=== PATIENT | male | born 1990 | race Caucasian/White ===

== ENCOUNTER 2016-05-08 04:20 | Emergency (ER) | payer OTHER ==
[~2016-05-08 04:20] MED LIST: ALPRAZOLAM; AMOXICILLIN PO; AMOXICILLIN500 M1 PO; ATARAX PO; BACTRIM DS TABL1 TA1 PO; CATAPRES0.1 MG PO; CLONIDINE PO; DOLOPHINE HCL5 MG; DOXYCYCLINE PO; FLEXERIL PO; FLEXERIL10 MG PO; IBUPROFEN PO; KEFLEX500 M1 PO; KEFLEX500 MG PO; LIDOCAINE HC MM; METHADONE; METHADONE PO; NAPROSYN375 MG PO; NO MEDICATIONS; PERCOCET5/325 PO; PERIDEX480 ML PO; PHENERGAN DM1 ML PO; PHENERGAN12.5 MG/SU; PHENERGAN25 M1; PHENERGAN25 M1 PO; PHENERGAN25 MG PO; SUBOXON; SUBOXONE 12 MG1 EACH; SUBOXONE 8 MG-1 EAC1; SUBOXONE 8 MG-1 EAC1 PO; TETRACYCLINE PO; VIBRAMYCIN100 M1 PO; VICODIN 5/500 T1 TAB PO; VISTARIL PO; VOLTAREN75 MG PO; XANAX0.5 M1 DOB; XANAX1 MG PO; ZOFRAN PO; ZYRTEC PO
[2016-06-10] MEDS ORDERED: NO MEDICATIONS (01:58)
== END 2016-05-08 06:30 | disposition home or self-care (01) ==
LOC: SED 04:20
DX: F11.129 Opioid abuse with intoxication, unspecified (principal); F15.129 Other stimulant abuse with intoxication, unspecified; F41.9 Anxiety disorder, unspecified; F17.210 Nicotine dependence, cigarettes, uncomplicated
CPT/HCPCS: 99282

== ENCOUNTER 2016-05-28 12:18 | Emergency (ER) | payer OTHER ==
[2016-06-10] MEDS ORDERED: NO MEDICATIONS (01:58)
== END 2016-05-28 12:42 | disposition home or self-care (01) ==
LOC: SED 12:18
DX: K02.9 Dental caries, unspecified (principal); K04.01 Reversible pulpitis; F41.9 Anxiety disorder, unspecified; Z98.890 Other specified postprocedural states
CPT/HCPCS: 99282

== ENCOUNTER 2016-06-10 02:31 | Emergency (ER) | payer OTHER ==
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
== END 2016-06-10 05:09 | disposition home or self-care (01) ==
LOC: SED 02:31
DX: S16.1XXA Strain of muscle, fascia and tendon at neck level, initial encounter (principal); S29.012A Strain of muscle and tendon of back wall of thorax, initial encounter; S39.012A Strain of muscle, fascia and tendon of lower back, initial encounter; F41.9 Anxiety disorder, unspecified; F17.200 Nicotine dependence, unspecified, uncomplicated; V49.50XA Passenger injured in collision with unspecified motor vehicles in traffic accident, initial encounter; Y93.89 Activity, other specified; Y92.410 Unspecified street and highway as the place of occurrence of the external cause
CPT/HCPCS: 72040; 72072; 72100; 99284

== ENCOUNTER 2016-10-12 16:31 | Emergency (ER) | payer OTHER ==
[2016-10-12 19:04] LABS: AMPHETAMINE POS (NEG); BARBITURATES NEG (NEG); BENZODIAZEPINES POS (NEG); COCAINE NEG (NEG); MARIJUANA POS (NEG); OPIATES POS (NEG); TRICYCLIC ANTIDEPRESSANTS NEG (NEG); U METHADONE NEG (NEG)
[2016-10-12 21:57] LABS: BASOPHIL# 0.1 X10e3 (0-0.3); EOSINOPHIL# 0.2 X10e3 (0-0.7); EOSINOPHIL% 4.3 % (0.0-7.0); HEMATOCRIT 38.1 % (38.0-50.0); HEMOGLOBIN 12.7 gm/dL (13.0-16.0); LYMPHOCYTE# 1.1 X10e3 (1.0-3.5); LYMPHOCYTE% 18.7 % (17.0-45.0); MEAN CELL VOLUME 89.9 FL (83-96); MEAN CORPUSCULAR HEMOGLOBIN 30.1 PG (28-34); MEAN CORPUSCULAR HGB CONC 33.5 g/dL (30-36); MEAN PLATELET VOLUME 7.6 FL (6.5-11.5); MONOCYTE# 0.8 X10e3 (0-1.0); MONOCYTE% 13.2 % (3.0-12.0); NEUTROPHIL# 3.6 X10e3 (1.5-7.1); NEUTROPHIL% 62.8 % (40-75); PLATELET COUNT 241 X10e3 (140-420); RED BLOOD COUNT 4.23 X10e (3.90-5.60); RED CELL DISTRIBUTION WIDTH 13.4 % (11.0-15.5); WHITE BLOOD COUNT 5.7 X10e3 (4.0-10.5)
[2016-10-12 21:58] LABS: DIFF IND NO
[2016-10-12 22:18] LABS: ALBUMIN SERUM 3.8 g/dL (3.5-5.0); ALKALINE PHOSPHATASE 160 U/L (32-92); ALT (SGPT) 646 U/L (10-40); AST (SGOT) 493 U/L (10-42); BILIRUBIN,TOTAL 1.2 mg/dL (0.2-2.0); BLOOD UREA NITROGEN 11 mg/dL (9-23); BUN/CREATININE RATIO 12.22; CALCIUM SERUM 8.6 mg/dL (8.4-10.2); CARBON DIOXIDE 30 mmol/L (22-31); CHLORIDE 104 mmol/L (100-111); CREATININE SERUM 0.9 mg/dL (0.6-1.4); GLOM FILT RATE Estimated 119.1 mL/min (>60); GLUCOSE FASTING 98 mg/dL (70-110); POTASSIUM 4.3 mmol/L (3.5-5.1); PROTEIN TOTAL SERUM 6.7 g/dL (6.0-8.3); SALICYLATE <4.0 mg/dL; SODIUM 138 mmol/L (135-145)
[2016-10-12 22:20] LABS: ACETAMINOPHEN <10 ug/mL; ALCOHOL BLOOD <5 mg/dL (0)
== END 2016-10-12 22:44 | disposition left against medical advice (07) ==
LOC: SED 16:31
PROVIDERS: Physician Assistant
DX: F19.10 Other psychoactive substance abuse, uncomplicated (principal); F41.9 Anxiety disorder, unspecified; F17.200 Nicotine dependence, unspecified, uncomplicated; Z90.89 Acquired absence of other organs
CPT/HCPCS: 80053; 80307; 85025; 96360; 99284; G0480; J2310

== ENCOUNTER 2016-11-19 22:18 | Emergency (ER) | payer OTHER ==
[~2016-11-19] VITALS: Ht 175.3 cm; Wt 72.6 kg
[2016-11-19] MEDS ORDERED: SUBOXONE 8 MG-1 EAC1 SL (22:30)
== END 2016-11-19 23:29 | disposition home or self-care (01) ==
LOC: SED 22:18
DX: F11.10 Opioid abuse, uncomplicated (principal); R51 Headache; F32.9 Major depressive disorder, single episode, unspecified; F17.200 Nicotine dependence, unspecified, uncomplicated
CPT/HCPCS: 99284